=== PATIENT | male | born 1965 | race Caucasian/White ===

== ENCOUNTER 2017-10-24 12:01 | Emergency (ER) | payer MEDICAID ==
--- NOTE | 2017-10-24 13:18 | XRAY Report ---
EXAM: RIGHT RIB RADIOGRAPHY EXAM DATE: 10/24/2017 12:57 PM. CLINICAL HISTORY: Blunt trauma to right rib cage yesterday. COMPARISON: None. TECHNIQUE: 1 view of the chest and 2 views of the ribs. FINDINGS: Bones: No fracture or bone lesion. Lungs: No focal opacities. No pneumothorax. No pleural effusions. Mediastinum: Heart and mediastinal contours are unremarkable. IMPRESSION: Negative ribs [facility] Referring Provider Line: [phone] SITE ID: [id number]
[2017-10-24] MEDS ORDERED: DEXAMETHASONE 10 MG/ML VIAL PO STA (13:33)
[2017-10-24] MEDS ORDERED: KETOROLAC 60 MG/2 ML VIAL IM STA (13:33)
--- NOTE | 2017-10-24 13:35 | ED Physician Documentation ---
PD HPI TRUNK INJURY - Stated complaint Stated Complaint: RT FLANK PAIN - Chief complaint Chief Complaint: Back Pain - History obtained from History obtained from: Patient - History of Present Illness Location: Right chest Type of injury: Blunt / blow Timing - onset: Yesterday Timing - duration: Days (1) Timing - details: Abrupt onset, Still present Quality: Pain, Spasm, Sharp Improved by: Rest, Immobilization Worsened by: Moving, Palpating Associated symtptoms: No: Weakness, Numbness, Tingling, Swelling Contributing factors: No: Anticoagulated Where injury occured: Work Similar symptoms before: Diagnosis (rib contusion) Recently seen: Not recently seen - Additional information Additional information: 52-year-old male employed as a [employer]te[employer] was underneath a house yesterday setting a 16 foot 4 by a beam. The beam was not set and it fell off the bottle radha and struck him in the right chest wall. He has pain in the area and a clicking sound with breathing. He is not short of breath but has pain with any movement or use of his upper extremities. He has had a similar injury previously with a contusion to the chest wall in the same area. He had x-rays at that time and no fracture at that time and it took about 4 weeks to get over. Review of Systems Constitutional: denies: Fever Eyes: denies: Decreased vision Ears: denies: Ear pain Nose: denies: Congestion Throat: denies: Sore throat Cardiac: reports: Chest pain / pressure. denies: Palpitations Respiratory: denies: Dyspnea, Cough, Wheezing GI: denies: Abdominal Pain, Nausea, Vomiting : denies: Dysuria Skin: denies: Rash Musculoskeletal: reports: Back pain. denies: Neck pain, Extremity pain Neurologic: denies: Generalized weakness, Focal weakness, Numbness PD PAST MEDICAL HISTORY - Present Medications Home Medications: Ambulatory Orders Medication Instructions Recorded Confirmed Gabapentin 900 mg PO TID 10/24/17 10/24/17 Lisinopril 10 mg PO DAILY 10/24/17 10/24/17 oxyCODONE/ACET 5/325 [Percocet 5 1 each PO Q4-6H PRN #20 tablet 10/24/17 mg/325 mg] raNITIdine [Zantac] 150 mg PO DAILY 10/24/17 10/24/17 - Allergies Allergies/Adverse Reactions: Allergies Allergy/AdvReac Type Severity Reaction Status Date / Time No Known Drug Allergies Allergy Verified 10/24/17 12:17 PD ED PE NORMAL - Vitals Vital signs reviewed: Yes (tachy and hypertensive) - General General: Alert and oriented X 3, No acute distress, Well developed/nourished - HEENT HEENT: Atraumatic, PERRL - Neck Neck: Supple, no meningeal sign - Cardiac Cardiac: RRR, No murmur - Respiratory Respiratory: No respiratory distress, Clear bilaterally, Other (There is chest wall tenderness and a lakshmi consistent with contusion to the chest wall with a board the size the patient reports. There is central tenderness to this area over the 9th rib laterally . ) - Abdomen Abdomen: Soft, Non tender - Back Back: No CVA TTP, No spinal TTP - Derm Derm: Normal color, Warm and dry, No rash - Extremities Extremities: No deformity, No edema - Neuro Neuro: No motor deficit, No sensory deficit Eye Opening: Spontaneous Motor: Obeys Commands Verbal: Oriented GCS Score: 15 - Psych Psych: Normal mood, Normal affect Results - Vitals Vitals: Vital Signs - 24 hr 10/24/17 12:14 Temperature 36.9 C Heart Rate 118 H Respiratory 18 Rate Blood Pressure 143/95 H O2 Saturation 100 Oxygen O2 Source Room air - Rads (name of study) chest with ribs. Radiology: Prelim report reviewed (Impression: Negative ribs.), EMP read indepedently, See rad report PD MEDICAL DECISION MAKING - ED course Complexity details: considered differential, d/w patient ED course: 52-year-old male with a contusion to the right chest wall has a clicking sound with breathing likely has a fracture to his rib that does not show up on plain film. He is treated with dexamethasone and Toradol here and we will provide him with some oxycodone for pain control. Departure - Departure Disposition: 01 Home, Self Care Clinical Impression: Chest wall contusion Qualifiers: Encounter type: initial encounter Laterality: right Qualified Code(s): S20.211A - Contusion of right front wall of thorax, initial encounter Condition: Stable Instructions: ED Contusion Rib, ED Contusion Chest Wall Follow-Up: Your, doctor [Other] Prescriptions: oxyCODONE/ACET 5/325 [Percocet 5 mg/325 mg] 1 each PO Q4-6H PRN #20 tablet PRN Reason: Pain
[2017-10-24 13:58] VITALS: BP 118/92
== END 2017-10-24 13:57 | disposition home or self-care (01) ==
LOC: ED 12:01
DX: S20.211A Contusion of right front wall of thorax, initial encounter (principal); W22.8XXA Striking against or struck by other objects, initial encounter; Y92.008 Other place in unspecified non-institutional (private) residence as the place of occurrence of the external cause; Y99.0 Civilian activity done for income or pay
CPT/HCPCS: 96372; 99283